=== PATIENT | male | born 1930 | race Caucasian/White ===

== ENCOUNTER 2016-10-12 09:38 | Emergency (ER) | payer OTHER ==
[~2016-10-12] VITALS: Ht 172.7 cm; Wt 70.0 kg
[~2016-10-12 09:38] MED LIST: ALBU6.7H INH; ASPI81TA82 PO; ENAL20TA81 PO; GLIP5 PO; GLUCTAB PO; MEVA40TA6 PO; PRED1TAB PO; PROS5TAB2 PO; TAB-TAB PO; TAMS0.4C67 PO; TOPR50TA PO; Z.0.OXYGENDME NC; ZYTI250T PO
[2016-10-12 09:43] VITALS: BP 154/90; PULSE 84; RESP 16; TEMP 98; O2SAT 94
[2016-10-12] MEDS ORDERED: Fish oil PO (10:13)
[2016-10-12] MEDS ORDERED: FERR65TA PO (10:13)
[2016-10-12] MEDS ORDERED: ZYTI250T PO (10:13)
[2016-10-12] MEDS ORDERED: FINA5TAB2 PO (10:13)
[2016-10-12] MEDS ORDERED: ENAL20TA PO (10:13)
[2016-10-12] MEDS ORDERED: METF1000 PO (10:13)
[2016-10-12] MEDS ORDERED: PRED5TAB PO (10:13)
[2016-10-12] MEDS ORDERED: METO25TA3 PO (10:13)
[2016-10-12] MEDS ORDERED: TAMS0.4C4 PO (10:13)
[2016-10-12] MEDS ORDERED: MULT1TAB84 PO (10:13)
[2016-10-12] MEDS ORDERED: GLIP5TAB8 PO (10:13)
[2016-10-12] MEDS ORDERED: LOVA40TA PO (10:13)
[2016-10-12] MEDS ORDERED: ASPI81CH37 CHEW (10:13)
--- NOTE | 2016-10-12 10:25 | PD ---
HPI Chief Complaint: Musculoskeletal Complaint Time Seen by Provider: 10:13 Travel History International Travel<30 days: No Contact w/Intl Traveler<30days: No Traveled to known affect area: No History of Present Illness HPI 86-year-old male presents with left-sided back pain that is been present over the past couple of days. He states it got worse today. He denies any associated symptoms including weakness, numbness, incontinence, trauma, abdominal pain, difficulty breathing, urinary symptoms or other concurrent complaints. Pain is worse with movement. He denies other modifying factors. Quality pain is sharp. Severity is moderate. He states Dr. Godinez is his primary care physician and he had blood work done routinely yesterday for his basic checkup. He states he tried [id number] pain medication with moderate relief. PFSH Past Medical History Autoimmune Disease: No Anxiety: No Depression: No Cancer: No Cardiac Catheterization: Yes Cardiovascular Problems: Yes (2001 STENT PLACEMENT) High Cholesterol: Yes Chemotherapy: No Chest Pain: Yes Coronary Artery Disease: Yes Diabetes: Yes Patient Takes Glucophage: Yes Diminished Hearing: Yes Endocrine: Yes Genitourinary: No Hypertension: Yes Immune Disorder: No Inguinal Hernia: Yes (Repair 2001) Musculoskeletal: No Neurologic: No Psychiatric: No Reproductive: No Respiratory: Yes Radiation Therapy: No Tetanus Vaccination: > 5 Years Influenza Vaccination: Yes Past Surgical History Body Medical Devices: Cardiac stents Cholecystectomy: Yes Other Surgery: Yes (Malignant tumor removed Lt. head ) Family History Family Hypercholesterolemia: Yes Social History Alcohol Use: Yes (Rarely) Tobacco Use: No Substance Use: No Allergies-Medications (Allergen,Severity, Reaction): Coded Allergies: No Known Allergies (Verified , 10/12/16) Reported Meds & Prescriptions Reported Meds & Active Scripts Active Lortab (Hydrocodone-Acetaminophen) 5-325 Mg Tab 1 Tab PO Q8HR PRN Keflex (Cephalexin) 500 Mg Cap 500 Mg PO TID 14 Days Reported Feosol (Ferrous Sulfate) 65 Mg Tab 65 Mg PO DAILY Aspirin Low Dose (Aspirin) 81 Mg Chew 81 Mg CHEW DAILY [Fish oil] 1,000 Mg PO TID Multivitamin Adults (Multiple Vitamins W/ Minerals) 1 Tab 1 Tab PO DAILY Prednisone 5 Mg Tab 5 Mg PO BID Zytiga (Abiraterone) 250 Mg Tab 1,000 Mg PO DAILY Hazardous agent; use appropriate precautions for handling & disposal. Take on an empty stomach, 1 hr before or 2 hrs after food. Swallow whole, do not crush or chew. Finasteride 5 Mg Tab 5 Mg PO DAILY Do not crush. Tamsulosin (Tamsulosin HCl) 0.4 Mg Cap 0.4 Mg PO HS Lovastatin 40 Mg Tab 80 Mg PO DAILY Enalapril (Enalapril Maleate) 20 Mg Tab 20 Mg PO BID Metoprolol Tartrate 25 Mg Tab 25 Mg PO BID Glipizide 5 Mg Tab 5 Mg PO DIRECTED Take 30 minutes before a meal Metformin (Metformin HCl) 1,000 Mg Tab 1,000 Mg PO BIDPC With meals Review of Systems Except as stated in HPI: all other systems reviewed are Neg Physical Exam Narrative GENERAL: Well-nourished, well-developed patient. SKIN: Warm and dry. HEAD: Normocephalic and atraumatic. EYES: No injection or drainage. ENT: No nasal drainage noted. NECK: Supple, trachea midline. CARDIOVASCULAR: Regular rate and rhythm RESPIRATORY: Breath sounds equal bilaterally. No accessory muscle use. GASTROINTESTINAL: Abdomen soft, non-tender, nondistended. EXTREMITIES: No edema. BACK: Nontender without obvious deformity in midline, left CVA tenderness. NEUROLOGICAL: Awake and alert. Moves all extremities. Normal speech. Data Data Last Documented VS Vital Signs Date Time Temp Pulse Resp B/P Pulse Ox O2 Delivery O2 Flow Rate FiO2 10/12/16 12:10 74 16 134/75 96 Room Air 10/12/16 09:43 98.0 Orders Urinalysis - C+S If Indicated (10/12/16 10:17) Ct Abd/Pel W/O Iv Contrast (10/12/16 ) Ketorolac Inj (Toradol Inj) (10/12/16 10:30) Complete Blood Count With Diff (10/12/16 10:23) Basic Metabolic Panel (Bmp) (10/12/16 10:23) Iv Access Insert/Monitor (10/12/16 10:23) Ketorolac Inj (Toradol Inj) (10/12/16 10:30) Urine Culture (10/12/16 10:30) Ceftriaxone Inj (Rocephin Inj) (10/12/16 11:00) Sodium Chlorid 0.9% 500 Ml Inj (Ns 500 M (10/12/16 11:00) Labs Laboratory Tests Test 10/12/16 10:30 White Blood Count 5.6 TH/MM3 Red Blood Count 4.01 MIL/MM3 Hemoglobin 11.4 GM/DL Hematocrit 34.9 % Mean Corpuscular Volume 87.1 FL Mean Corpuscular Hemoglobin 28.6 PG Mean Corpuscular Hemoglobin 32.8 % Concent Red Cell Distribution Width 14.8 % Platelet Count 178 TH/MM3 Mean Platelet Volume 6.9 FL Neutrophils (%) (Auto) 64.7 % Lymphocytes (%) (Auto) 25.2 % Monocytes (%) (Auto) 7.6 % Eosinophils (%) (Auto) 1.9 % Basophils (%) (Auto) 0.6 % Neutrophils # (Auto) 3.7 TH/MM3 Lymphocytes # (Auto) 1.4 TH/MM3 Monocytes # (Auto) 0.4 TH/MM3 Eosinophils # (Auto) 0.1 TH/MM3 Basophils # (Auto) 0.0 TH/MM3 CBC Comment DIFF FINAL Differential Comment Urine Collection Type CLEAN CATCH Urine Color YELLOW Urine Turbidity SLIGHT Urine pH 5.5 Urine Specific [place] 1.021 Urine Protein TRACE mg/dL Urine Glucose (UA) NEG mg/dL Urine Ketones NEG mg/dL Urine Occult Blood LARGE Urine Nitrite NEG Urine Bilirubin NEG Urine Leukocyte Esterase NEG Urine RBC INNUM /hpf Urine WBC 20-24 /hpf Urine Squamous Epithelial 0-5 /hpf Cells Urine Transitional Epithelial 0-5 /hpf Cells Urine Renal Epithelial Cells > 8 /hpf Microscopic Urinalysis Comment CULTURE INDICATED Urine Collection Time 10:30 Sodium Level 145 MEQ/L Potassium Level 4.2 MEQ/L Chloride Level 110 MEQ/L Carbon Dioxide Level 26.9 MEQ/L Anion Gap 8 MEQ/L Blood Urea Nitrogen 35 MG/DL Creatinine 1.20 MG/DL Estimat Glomerular Filtration 58 ML/MIN Rate Random Glucose 167 MG/DL Calcium Level 9.1 MG/DL [facility] Medical Decision Making Medical Screen Exam Complete: Yes Emergency Medical Condition: Yes Medical Record Reviewed: Yes (past history confirmed) Interpretation(s) Outpatient blood work was for cholesterol and LFTs that did not show emergent findings CBC & BMP Diagram 10/12/16 10:30 Last 24 hours Impressions Abdomen/Pelvis CT 10/12/16 0000 Signed Impressions: Service Date/Time: Wednesday, October 12, 2016 10:52 - CONCLUSION: 1. No renal stones are identified. No findings to indicate renal obstruction are evident. 2. Enlargement of the prostate. The prostate measures 4.9 x 3.4 cm. 3. Left adrenal nodule measuring 1.9 x 2.2 cm. This does not fit criteria for benign adenoma. 4. Mildly aneurysmal infrarenal aorta with a maximum dimension of 3.4 cm. 5. Hiatal hernia. 6. 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 7. There are numerous sclerotic bony lesions suggesting wide spread bony metastatic disease. Gino Patterson MD Differential Diagnosis Stone, musculoskeletal, UTI Narrative Course Will check blood work, CT scan abdominal pelvis, urinalysis and reevaluate. CT scan shows widespread bony metastatic disease which patient and daughter is not aware of. They state that Dr. castillo is his urologist with his cancer. He is scheduled for a CAT scan tomorrow and a bone scan later next week. Given Rocephin for possible pyelonephritis given positive UA with left-sided CVA tenderness Patient and daughter updated. They state that they had not heard about the spread to his bones. They will discuss it with Dr. castillo on next follow-up. I offered to call primary care physician to help coordinate care to but they are wanting to go. His daughter canceled his CAT scan already. Patient has no fever, white count or others Sirs criteria. He is able to urinate on his own and has no hydronephrosis on CAT scan. Patient denies any new complaints and states that they are feeling better. Patient happy with care, all questions answered. Patient knows that follow up is incumbent on them and to return to the emergency room immediately if new or worsening symptoms develop. Patient given strict return precautions, vitals reviewed and are normal, agrees to further workup as an outpatient. 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
[2016-10-12] MEDS ORDERED: KETOROLAC TROMETHAMINE 30 MG/ML (IVP) VIAL IV PUSH ONE (10:30)
[2016-10-12] MEDS ORDERED: KETOROLAC TROMETHAMINE 60 MG/2 ML (IM) VIAL IM ONE (10:30)
[2016-10-12 10:37] LABS: AUTOMATED NEUTROPHIL # 3.7 TH/MM3 (1.8-7.7); BASOPHIL % 0.6 % (0.0-2.0); EOSINOPHIL # 0.1 TH/MM3 (0-0.4); EOSINOPHIL % 1.9 % (0.0-4.0); HEMATOCRIT 34.9 % (39.0-51.0); HEMO FLAGS DIFF FINAL; LYMPH % 25.2 % (9.0-44.0); LYMPHOCYTE # 1.4 TH/MM3 (1.0-4.8); MEAN CELL VOLUME 87.1 FL (80.0-100.0); MEAN CORPUSCULAR HEMOGLOBIN 28.6 PG (27.0-34.0); MEAN CORPUSCULAR HGB CONC 32.8 % (32.0-36.0); MONO % 7.6 % (0.0-8.0); NEUT % 64.7 % (16.0-70.0); PLATELET COUNT 178 TH/MM3 (150-450); RED BLOOD COUNT 4.01 MIL/MM3 (4.50-5.90); RED CELL DISTRIBUTION WIDTH 14.8 % (11.6-17.2); WHITE BLOOD COUNT 5.6 TH/MM3 (4.0-11.0)
[2016-10-12 10:38] LABS: BLOOD, URINE LARGE (NEG); GLUCOSE,URINE NEG (NEG); KETONE, URINE NEG (NEG); NITRITE,URINE NEG (NEG); PH, URINE 5.5 (5.0-8.5)
[2016-10-12 10:44] LABS: POTASSIUM 4.2 MEQ/L (3.5-5.1)
[2016-10-12 10:47] LABS: BICARBONATE 26.9 MEQ/L (21.0-32.0)
[2016-10-12 10:48] LABS: METHOD OF COLLECTION CLEAN CATCH; URINE COLOR YELLOW (YELLW/STRAW)
[2016-10-12 10:49] LABS: COMMENT (UR) CULTURE INDICATED; CULTURE IF INDICATED CULTURE INDICATED; RBC, URINE INNUM /hpf (0-3); RENAL EPITHELIAL CELLS > 8 /hpf; SQUAMOUS EPITHELIAL CELL URINE 0-5 /hpf (0-5); TRANSITIONAL EPI CELLS, URINE 0-5 /hpf
[2016-10-12] MEDS ORDERED: SODIUM CHLORID 0.9% 500 ML INJ 500 ML IV ONE (11:00)
[2016-10-12] MEDS ORDERED: cefTRIAXone INJ 1,000 MG in SODIUM CHLORIDE 0.9% INJ 100 ML IV ONE (11:00)
--- NOTE | 2016-10-12 11:37 | RADHPO ---
EXAM DATE/TIME: 10/12/2016 10:52 [facility] COMPARISON: CT PULMONARY ANGIOGRAM, June 01, 2016, 15:22. INDICATIONS : Left flank pain. ORAL CONTRAST: No oral contrast ingested. RADIATION DOSE: 14.73 CTDIvol (mGy) MEDICAL HISTORY : Cardiovascular disease. Hypertension. Carcinoma, prostate.Diabetes. SURGICAL HISTORY : Cholecystectomy. Inguinal hernia repair. ENCOUNTER: Initial ACUITY: 2 days PAIN SCALE: 8/10 LOCATION: Left flank TECHNIQUE: Volumetric scanning of the abdomen and pelvis was performed. Using automated exposure control and ad justment of the mA and/or kV according to patient size, radiation dose was kept as low as reasonably achievable to obtain optimal diagnostic quality images. FINDINGS: There is advanced interstitial fibrotic change and emphysema seen within the visualized portion of th e left lung base. There is a sizable hiatal hernia. Right kidney/ureter: The right kidney is normal in size. There is a 1.4 cm cyst within the cortex. No stones are seen. The re is no retroperitoneal lymphadenopathy. The ureter is normal in caliber throughout its course. Left kidney/ureter: The left kidney is normal in size. There is a 1 cm parapelvic cyst. There is no hydronephrosis. The l eft ureter is followed throughout its course and is normal in caliber. Bladder: The contours of the bladder are unremarkable. Prostate: The prostate is enlarged measuring 4.[address] source data: The appearance of the liver, spleen, pancreas and right adrenal gland is within normal limits. Examin ation of the left adrenal gland demonstrates a 1.9 x 2.2 cm nodule. This averages 31 Hounsfield units as such, this does not fit criteria for benign adenoma. MRI imaging could be performed for more defi nitive assessment. The abdominal aorta demonstrates moderate atherosclerotic plaquing. The infrarenal segment is mildly aneurysmal at 3.4 cm. There is no significant retroperitoneal lymphadenopathy. The visualized loops of small and large bowel are unremarkable. There are numerous sclerotic bony lesions suggesting wide spread bony metastatic disease. CONCLUSION: 1. No renal stones are identified. No findings to indicate renal obstruction are evident. 2. Enlargement of the prostate. The prostate measures 4.9 x 3.4 cm. 3. Left adrenal nodule measuring 1.9 x 2.2 cm. This does not fit criteria for benign adenoma. 4. Mildly aneurysmal infrarenal aorta with a maximum dimension of 3.4 cm. 5. Hiatal hernia. 6. 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 7. There are numerous sclerotic bony lesions suggesting wide spread bony metastatic disease. Gino Patterson MD on October 12, 2016 at 11:22 Board Certified Radiologist. This report was verified electronically.
[2016-10-12 12:10] VITALS: BP 134/75; PULSE 74; RESP 16; O2SAT 96
[2016-10-12] MEDS ORDERED: CEPH-460 PO (12:10)
[2016-10-12] MEDS ORDERED: HYDR-3533 PO (12:33)
[2016-10-13] MEDS ORDERED: FISH100020 PO (16:19)
== END 2016-10-12 12:50 | disposition home or self-care (01) ==
LOC: PHED 09:38
DX: C79.82 Secondary malignant neoplasm of genital organs (principal); C79.51 Secondary malignant neoplasm of bone; N12 Tubulo-interstitial nephritis, not specified as acute or chronic; B96.89 Other specified bacterial agents as the cause of diseases classified elsewhere
CPT/HCPCS: 74176; 80048; 81001; 85025; 87086; 96365; 96375; 99284; J0696; J1885; J7040